=== PATIENT | female | born 1990 | race Hispanic/Latino ===

== ENCOUNTER 2018-03-27 07:52 | Emergency (ER) | payer OTHER ==
[2018-03-27] MEDS ORDERED: DEXAMETHASONE SOD PHOSPHATE 10MG/ML 1ML VIAL ONE (10:21)
[2018-03-27] MEDS ORDERED: ORPHENADRINE CITRATE 30 MG/ML ML ONE (10:21)
[2018-03-27] MEDS ORDERED: KETOROLAC TROMETHAMINE 15MG/ML ONE (10:21)
== END 2018-03-27 12:45 | disposition home or self-care (01) ==
LOC: EDH 07:52
DX: G89.29 Other chronic pain (principal); M54.5 Low back pain; R26.9 Unspecified abnormalities of gait and mobility; Z98.890 Other specified postprocedural states
CPT/HCPCS: 36415; 76856; 81025; 86140; 96374; 96375; 99285; J1100; J1885; J2360

== ENCOUNTER 2018-05-31 08:42 | Emergency (ER) | payer OTHER ==
[2018-05-31] MEDS ORDERED: ACETAMINOPHEN-CODEINE 300/30MG TAB ONE (09:21)
[2018-05-31 09:25] LABS: APPEARANCE,URINE CLEAR (CLEAR); BILIRUBIN,URINE NEGATIVE (NEGATIVE); COLOR,URINE YELLOW (YELLOW); GLUCOSE, URINE (UA) NEGATIVE (NEGATIVE); HCG,QUAL RESULT NEGATIVE (NEGATIVE); KETONES,URINE NEGATIVE (NEGATIVE); LEUKOCYTE ESTERASE ,URINE TRACE (NEGATIVE); NITRATE,URINE NEGATIVE (NEGATIVE); OCCULT BLOOD,URINE SMALL (NEGATIVE); PH,URINE 5.5 (5.0-8.0); PROTEIN,URINE NEGATIVE (NEGATIVE); UROBILINOGEN,URINE 0.2 mg/dL (0.2-1.0)
[2018-05-31] MEDS ORDERED: ONDANSETRON ODT 4 MG TAB ONE (09:30)
[2018-05-31 09:36] LABS: BACTERIA,URINE Rare /HPF (None Seen); RBC,URINE 0-1 /HPF (0-1)
[2018-05-31 09:37] LABS: SQUAMOUS EPITHELIAL CELL,UR Rare /HPF (0-2)
[2018-05-31 09:41] LABS: CREATININE 0.8 mg/dL (0.5-1.5)
[2018-05-31] MEDS ORDERED: SODIUM CHLORIDE 0.9% 500ML 500 ML IV ONE (10:41)
[2018-05-31] MEDS ORDERED: KETOROLAC TROMETHAMINE 30MG/ML ONE (12:51)
== END 2018-05-31 13:12 | disposition home or self-care (01) ==
LOC: EDH 08:42
DX: N88.8 Other specified noninflammatory disorders of cervix uteri (principal); R10.2 Pelvic and perineal pain
CPT/HCPCS: 36415; 74176; 76856; 80048; 81001; 81025; 96374; 99284; J1885; J7040

== ENCOUNTER → 2018-06-29 | Outpatient (CLI) | payer OTHER | END | disposition home or self-care (01) | LOC: RAH 10:00 | PROVIDERS: ATTEND Family Medicine | DX: M51.27 Other intervertebral disc displacement, lumbosacral region (principal); M48.07 Spinal stenosis, lumbosacral region; M51.37 Other intervertebral disc degeneration, lumbosacral region; M47.817 Spondylosis without myelopathy or radiculopathy, lumbosacral region | CPT/HCPCS: 72148 ==